=== PATIENT | female | born 1945 | race Caucasian/White ===

== ENCOUNTER → 2016-11-15 | Outpatient (CLI) | payer MEDICARE, OTHER | END | disposition home or self-care (01) | LOC: YCFC.O 16:22 | PROVIDERS: ATTEND Nurse Practitioner Family | DX: R60.0 Localized edema (principal) ==

== ENCOUNTER → 2016-11-16 | Outpatient (CLI) | payer OTHER, MEDICAID ==
--- NOTE | 2016-11-16 16:23 | US ---
EXAM DESCRIPTION: Venous,Lower Extremity RT CLINICAL HISTORY: LOCALIZED EDEMA COMPARISON: None Available. TECHNIQUE: Right lower extremity venous duplex FINDINGS: There is no DVT identified. There is normal color flow observed with good flow augmentation. All deep veins compress normally. IMPRESSION: Negative for right lower extremity DVT. Electronically signed by: Qmaar Wang MD 11/16/2016 4:21 PM NEUROSURGERY SPINE PHYSICIAN
--- NOTE | 2016-11-17 13:47 | US ---
EXAM DESCRIPTION: Venous,Lower Extremity LT CLINICAL HISTORY: 71 years Female, EDEMA COMPARISON: None. TECHNIQUE: Grayscale, color Doppler and spectral Doppler imaging of the left lower extremity venous structures was performed. Static images were saved to the patient's medical record. FINDINGS: Normal compressibility and color Doppler flow within the deep venous structures of the left lower extremity. Incidentally noted is imaging of the facial varicose veins of the anterior proximal calf. These are thrombosed. IMPRESSION: Today's exam demonstrates thrombosed superficial varicose veins of the left calf. No evidence of DVT. Electronically signed by: Qamar Wang MD 11/16/2016 4:21 PM PLASTICS AND COMPOSITES INSPECTOR
--- NOTE | 2016-11-22 00:34 | US ---
EXAM DESCRIPTION: Venous,Lower Extremity RT CLINICAL HISTORY: LOCALIZED EDEMA COMPARISON: None Available. TECHNIQUE: Right lower extremity venous duplex FINDINGS: There is no DVT identified. There is normal color flow observed with good flow augmentation. All deep veins compress normally. IMPRESSION: Negative for right lower extremity DVT. Electronically signed by: Qamar Wang MD 11/16/2016 4:21 PM ELECTRICAL SUPERINTENDENT
== END | disposition home or self-care (01) ==
LOC: US 13:08
PROVIDERS: ATTEND Nurse Practitioner Family
DX: R60.0 Localized edema (principal)

== ENCOUNTER 2017-01-21 14:53 | Emergency (ER) | payer OTHER, MEDICAID ==
[2017-01-21 16:11] VITALS: TEMP 98.5; O2SAT 95
--- NOTE | 2017-01-21 16:52 | ED.PDOC ---
History of Present Illness - General Chief Complaint: Lower Extremity Injury Stated Complaint: left thigh pain Time Seen by Provider: 01/21/17 15:18 Source: patient Exam Limitations: no limitations - History of Present Illness Initial Comments: The patient is a 71-year-old female presenting to the emergency room secondary to left leg pain. She has had some pain in the left calf as well as some pain in the left lateral thigh for the last 2-3 days. Prior to that approximately 3 weeks ago she actually fell through a dog and sustained a significant bruise along the leg and was sore for a period of weeks after that. She developed this new increasing discomfort and was concerned for a deep venous thrombosis. No chest pain or shortness of breath. No palpitations. She has been ambulatory on the leg. There is no gross deformity other than what is obviously a large bruise to the left upper thigh that is healing.the hematoma to the left thigh is uncomfortable to palpation. There is no posterior pain in the left thigh. The patient does have pain in the left calf with dorsiflexion of the foot. There are no obvious palpable cords. She does have varicose veins. There is no obvious bruising here. No deformity. Sensation is preserved. Pulses are good. Occurred: other Pain - Lower Extremity: mild: Left Thigh/Hip, Left Calf Method of Injury: fell Improving Factors: nothing Worsening Factors: nothing Allergies/Adverse Reactions: Allergies NO KNOWN ALLERGY Allergy (Verified 07/23/15 20:47) Review of Systems - Review of Systems Constitutional: States: no symptoms reported EENTM: States: no symptoms reported Respiratory: States: no symptoms reported Cardiology: States: no symptoms reported Gastrointestinal/Abdominal: States: no symptoms reported Genitourinary: States: no symptoms reported Musculoskeletal: States: no symptoms reported, see HPI Skin: States: no symptoms reported Neurological: States: no symptoms reported Endocrine: States: no symptoms reported All other Systems: No Change from Baseline Past Medical History (General) - Patient Medical History Hx of COPD: Yes Hx Cardiac Disorders: Yes Hx Congestive Heart Failure: Yes Hx Hypertension: Yes Hx Diabetes: No Hx Gastroesophageal Reflux: Yes - Vaccination History Hx Tetanus, Diphtheria Vaccination: Yes - Social History Hx Tobacco Use: No - Female History Patient : No - Triage Comment ED Triage Comment: Pt states she has been having left thigh pain for past 3 weeks and pain is getting worse. Having more difficult time weight bearing and having throbbing pain. Family Medical History - Family History Mother Family History: No Known Living Status: Physical Exam - Physical Exam General Appearance: Alert, Comfortable, No apparent distress Eyes, Ears, Nose, Throat: PERRL/EOMI Neck: non-tender, full range of motion, supple Cardiovascular/Respiratory: regular rate, rhythm, normal peripheral pulses, normal breath sounds, no respiratory distress Gastrointestinal/Abdominal: non-tender Back: normal inspection Thigh/Hip: pain, soft tissue tenderness, swelling, other Leg: pain, other - see history of present illness Knee: normal inspection, non-tender, no evidence of injury, normal ROM Ankle: normal inspection, non-tender, no evidence of injury, normal ROM Foot: normal inspection, non-tender, no evidence of injury, normal ROM Neuro/Tendon: normal sensation, normal motor functions, normal tendon functions Mental Status: alert, oriented x 3 Skin: normal color Comments: Vital Signs - 24 hr 01/21/17 16:06 Temperature 98.5 F Pulse Rate [ 65 monitor] Respiratory 18 Rate Blood Pressure 137/82 [Left Arm] O2 Sat by Pulse 95 Oximetry Progress - Progress Progress: 01/21/17 16:52 the patient is a 71-year-old female presenting with left lower extremity pain with concern for a deep venous thrombosis. Ultrasound has been performed and no deep venous thrombosis has been demonstrated. Discomfort is likely due to muscular strain from fall 3 weeks ago. She does need to do stretching and range of motion exercises. ER warnings were given. Follow-up with primary care doctor next week. Departure - Departure Clinical Impression: Strain of calf muscle Qualifiers: Encounter type: initial encounter Laterality: left Qualified Code(s): S86.812A - Strain of other muscle(s) and tendon(s) at lower leg level, left leg, initial encounter Disposition: Discharge to Home or Self Care Condition: Fair Departure Forms: ED Discharge - Pt. Copy, Patient Portal Self Enrollment Instructions: Muscle Strain Diet: bland diet Activity: increase activity as tolerated Referrals: Shelby Faye FNP [Primary Care Provider] - 1-2 Weeks Additional Instructions: the patient is a 71-year-old female presenting with left lower extremity pain with concern for a deep venous thrombosis. Ultrasound has been performed and no deep venous thrombosis has been demonstrated. Discomfort is likely due to muscular strain from fall 3 weeks ago. She does need to do stretching and range of motion exercises. ER warnings were given. Follow-up with primary care doctor next week.
--- NOTE | 2017-01-21 16:53 | US ---
EXAM DESCRIPTION: Venous,Lower Extremity LT CLINICAL HISTORY: lower ext pain COMPARISON: None. TECHNIQUE: 2D grayscale and color venous duplex Doppler evaluation of the lower extremity are obtained from groin to calf. FINDINGS: There is normal flow, augmentation to flow, and compressibility of the deep venous vasculature of the left lower extremity with no ultrasound evidence of deep venous thrombosis. IMPRESSION: No ultrasound evidence of deep venous thrombosis . Electronically signed by: Panfilo Cui MD 01/21/2017 4:53 PM CDT
[2017-01-22 08:54] VITALS: BP 134/80
== END 2017-01-21 17:10 | disposition home or self-care (01) ==
LOC: ER 14:53
DX: S86.812A Strain of other muscle(s) and tendon(s) at lower leg level, left leg, initial encounter (principal); J44.9 Chronic obstructive pulmonary disease, unspecified; I11.0 Hypertensive heart disease with heart failure; I50.9 Heart failure, unspecified; K21.9 Gastro-esophageal reflux disease without esophagitis; W19.XXXA Unspecified fall, initial encounter

== ENCOUNTER → 2017-03-23 | Outpatient (CLI) | payer OTHER, MEDICAID ==
--- NOTE | 2017-03-24 08:17 | CT ---
EXAM DESCRIPTION: Abdoment/Pelvis w/o Contrast CLINICAL HISTORY: ABD PN COMPARISON: July 21, 2015 TECHNIQUE: CT of the abdomen and Pelvis was performed without IV contrast. This exam was performed according to our departmental dose-optimization program, which includes automated exposure control, adjustment of the mA and/or kV according to patient size and/or use of iterative reconstruction technique. FINDINGS: There is a left periumbilical anterior abdominal wall hernia with the hernia sac measuring 6.2 cm transverse diameter and the hernia defect measuring approximately 2.5 cm transverse diameter. The hernia contains omental fat and fluid with inflammation suggestive of fatty ischemia. No herniated bowel loops. Overall, the size of the hernia is not significantly changed from June, but degree of fatty inflammation is new from the prior study. Question previously repaired midline anterior abdominal wall hernia at or near the same location. No pneumoperitoneum, ascites or adenopathy. No abdominal aortic aneurysm. Postoperative changes are noted in the stomach. There are surgical clips anterior to the liver. No calcified gallstone. The liver, spleen, pancreas, adrenals and kidneys are unremarkable for noncontrast technique. Surgical clips are noted in the right mid abdomen. No dilated small bowel loops. The bladder is suboptimally distended. The uterus is surgically absent. The ovaries are not confidently identified and are either atrophied or surgically absent. No adnexal mass. Minimal colonic diverticulosis without diverticulitis. Old T12 compression fracture, no acute bone lesion. IMPRESSION: Left periumbilical anterior abdominal wall hernia containing only fat and fluid as detailed above. The size of the hernia is stable from June, but inflammation involving herniated fat is new from the prior study and suggests ischemia which may present a source of pain in this patient. Surgical consultation should be considered. No herniated bowel loops, obstruction, pneumoperitoneum or other acute intra-abdominal abnormality. Electronically signed by: Jose Azul MD 03/24/2017 8:16 AM CDT Workstation: [id number]
== END | disposition home or self-care (01) ==
LOC: CT 09:03
PROVIDERS: ATTEND Nurse Practitioner Family
DX: K46.9 Unspecified abdominal hernia without obstruction or gangrene (principal)

== ENCOUNTER → 2018-03-22 | Outpatient (CLI) | payer OTHER, MEDICAID ==
--- NOTE | 2018-03-22 17:22 | RAD ---
EXAM DESCRIPTION: Chest,2 Views CLINICAL HISTORY: COPD, ESSENTIAL HYPERTENSION COMPARISON: Previous study February 06, 2016 TECHNIQUE: PA/lateral FINDINGS: There is no acute appearing cardiac or pulmonary abnormality. Calcified granulomas are seen in the left upper and lower lobes. Heart size is normal with normal pulmonary vascularity. No pleural effusion or pneumothorax. Lungs are clear with no consolidating infiltrate. Lateral view shows intact sternum and osteopenic T-spine. No change compared to previous study. IMPRESSION: No acute process is identified in the chest. Electronically signed by: Marco Bush MD 03/22/2018 5:20 PM CDT
== END ==
LOC: YCFC.O 16:13
PROVIDERS: ATTEND Nurse Practitioner Family
DX: J44.9 Chronic obstructive pulmonary disease, unspecified (principal); I10 Essential (primary) hypertension; R73.09 Other abnormal glucose; M62.81 Muscle weakness (generalized); R00.2 Palpitations; R07.89 Other chest pain

== ENCOUNTER → 2018-03-28 | Outpatient (CLI) | payer OTHER, MEDICAID | LOC: YCFC.O 11:25 | DX: R53.83 Other fatigue (principal) ==

== ENCOUNTER → 2018-06-15 | Outpatient (CLI) | payer OTHER, MEDICAID ==
--- NOTE | 2018-06-15 21:01 | MAM ---
EXAM DESCRIPTION: 3D Screening BILATERAL : Digital Mammography. CLINICAL HISTORY: 73 years Female SCREENING . No complaints and no personal history of breast cancer. Sister with breast cancer. Childbirth. Postmenopausal. No HRT. COMPARISON: Baseline study at this facility.. TECHNIQUE: Bilateral CC and MLO projection full-field images, Digital tomosynthesis mammographic technique. Bilateral digital 2-D full-field MLO images. CAD not utilized. FINDINGS: The breast parenchymal density pattern is: Scattered areas of fibroglandular density. No skin thickening or nipple retraction. Bilateral vascular calcifications. Bilateral solitary microcalcifications. Bilateral retroareolar focal asymmetry and minimal architectural distortion. No suspicious microcalcifications bilaterally. IMPRESSION: BI-RADS CATEGORY: 0 - INCOMPLETE- Need additional imaging evaluation. FOLLOW-UP: Recall for additional imaging: Bilateral targeted breast ultrasound of the regions of interest.. Written communication concerning the IMPRESSION and Follow-up, will be mailed to the patient and referring health care provider. Electronically signed by: Yobany Dickinson MD 06/15/2018 8:59 PM CDT
== END ==
LOC: MAMMO 13:00
PROVIDERS: ATTEND Nurse Practitioner Family
DX: Z12.31 Encounter for screening mammogram for malignant neoplasm of breast (principal)

== ENCOUNTER → 2018-08-11 | Outpatient (CLI) | payer OTHER, MEDICAID ==
--- NOTE | 2018-08-11 11:49 | US ---
EXAM DESCRIPTION: Breast,Bilateral: Ultrasound CLINICAL HISTORY: 73 yearsFemaleABNORMAL MAMMO. Focal asymmetries in the bilateral retroareolar breasts. COMPARISON: Digital screening tomosynthesis bilateral breast June 15, 2018. TECHNIQUE: Transcutaneous scanning of the bilateral retroareolar breast utilizing faulkner-scale and Doppler modes. Scanning performed by the trench trimmer fine ; observation by Dr. Dickinson. FINDINGS: Typical retroareolar tissues with echotexture of fatty and fibroglandular tissues and acoustic shadowing from the nipple. No distinct solid dominant mass or cyst. No abnormal vascularity or overlying skin changes. No large calcifications or parenchymal edema. IMPRESSION: Benign exam. BIRAD CATEGORY: 2 BENIGN FINDINGS. RECOMMENDATIONS: FOLLOW UP: Routine digital bilateral mammographic screening, one year interval from May 2018. The FINDINGS and the FOLLOW-UP plan were reviewed in person with the patient after the examination. Written communication explaining the IMPRESSION and FOLLOW-UP will be mailed to the patient and referring care provider. According to the [employer], yearly mammograms are recommended starting at age 40 and continuing as long as a woman is in good health. Any breast change noted on a breast self-exam should be reported promptly to the patient's healthcare provider. Breast MRI is recommended for women with an approximately 20-25% or greater lifetime risk of breast cancer, including women with a strong family history of breast or ovarian cancer and women who have been treated for Hodgkin's disease. A negative mammographic report should not delay tissue diagnosis in patients with significant clinical history or physical findings. Extremely dense breast tissue limits the sensitivity of digital mammography. Electronically signed by: Yobany Dickinson MD 08/11/2018 11:47 AM [facility]
== END ==
LOC: MAMMO 09:19
PROVIDERS: ATTEND Nurse Practitioner Family
DX: R92.8 Other abnormal and inconclusive findings on diagnostic imaging of breast (principal)

== ENCOUNTER 2019-01-29 05:29 | Day surgery (SDC) | payer OTHER, MEDICAID ==
[2019-01-29] MEDS ORDERED: TROP 1%/CYCLOPEN 1%/PHENYL 2% DROPS ONE (06:06)
[2019-01-29] MEDS ORDERED: PROPARACAINE 0.5% OPHTH SOL 15 ML BTTL ONE (06:06)
[2019-01-29] MEDS ORDERED: MOXIFLOXACIN HCL (OPHTH) 1 DROP DROPS ONE (06:06)
[2019-01-29] MEDS ORDERED: MIDAZOLAM INJ 2 MG/2 ML VIAL ONE (07:52)
[2019-01-29] MEDS ORDERED: PROPARACAINE 0.5% OPHTH SOL 15 ML BTTL RIGHT_EYE ONE (08:38)
[2019-01-29] MEDS ORDERED: LIDOCAINE 1% 2 ML VIAL INJ ONE (08:45)
[2019-01-29] MEDS ORDERED: MOXIFLOXACIN HCL (OPHTH) 1 DROP DROPS RIGHT_EYE ONE ×2 (08:46→08:56)
[2019-01-29] MEDS ORDERED: BRIMONIDINE 0.2% OPHTH DROPS RIGHT_EYE ONE ×2 (08:48→08:56)
[2019-01-29] MEDS ORDERED: TOBRAMYCIN SULF 0.3 % OPHT SOL 1 DROP RIGHT_EYE ONE ×2 (08:48→08:56)
[2019-01-29] MEDS ORDERED: DEXAMETHASONE 0.1% OPHTH SOL 1 DROP RIGHT_EYE ONE ×2 (08:48→08:56)
== END 2019-01-29 09:50 | disposition home or self-care (01) ==
LOC: AMB 05:29
PROVIDERS: ATTEND Ophthalmology
DX: H25.811 Combined forms of age-related cataract, right eye (principal)
CPT/HCPCS: 00142; 66984; J2250

== ENCOUNTER → 2019-03-28 | Outpatient (CLI) | payer OTHER, MEDICAID | LOC: GMAM 17:31 | PROVIDERS: ATTEND Family Medicine | DX: R10.33 Periumbilical pain (principal) ==

== ENCOUNTER → 2019-06-04 | Outpatient (CLI) | payer OTHER, MEDICAID ==
--- NOTE | 2019-06-04 18:05 | RAD ---
PROVIDED CLINICAL HISTORY/REASON FOR EXAM: RT HIP PAIN Findings: Number of images: 3 Location: Right hip/pelvis No acute fracture or dislocation. Moderate right hip osteoarthritis. Mild degenerative changes noted in both sacroiliac joints. Moderate left hip osteoarthritis. Surgical clips overlie the lower abdomen. Pelvic phleboliths. Degenerative changes about the pubic symphysis. Osteopenia. IMPRESSION: Degenerative changes about the right hip/pelvis. No acute fracture or dislocation. Electronically signed by: Benson Hermosillo MD 06/04/2019 6:04 PM CDT
== END ==
LOC: RAD 12:57
PROVIDERS: ATTEND Nurse Practitioner Family
DX: M16.11 Unilateral primary osteoarthritis, right hip (principal); M47.898 Other spondylosis, sacral and sacrococcygeal region

== ENCOUNTER → 2020-07-03 | Outpatient (CLI) | payer OTHER, MEDICAID ==
--- NOTE | 2020-07-03 19:05 | RAD ---
EXAM DESCRIPTION: Foot,Left 3 Views CLINICAL HISTORY: 75 years Female, FOOT PAIN COMPARISON: May 13, 2020 Findings: 3 view(s)/radiograph(s) Osteopenia. Lisfranc alignment is maintained. Similar deformity of the second digit proximal phalanx. No new fracture is identified. Lisfranc alignment is maintained.. Stable degenerative changes. Healing left fifth metatarsal neck fracture with adjacent soft tissue swelling. IMPRESSION: Interval healing of the previously identified left fifth metatarsal neck fracture with adjacent soft tissue swelling. Electronically signed by: Benson Hermosillo MD 07/03/2020 7:03 PM CDT
== END ==
LOC: RAD 09:03
PROVIDERS: ATTEND Orthopaedic Surgery
DX: S92.355A Nondisplaced fracture of fifth metatarsal bone, left foot, initial encounter for closed fracture (principal)

== ENCOUNTER → 2020-09-30 | Outpatient (CLI) | payer OTHER, MEDICAID ==
--- NOTE | 2020-10-01 08:29 | RAD ---
EXAM DESCRIPTION: Chest,2 Views CLINICAL HISTORY: PRE-OP COMPARISON: Previous study March 22, 2018 TECHNIQUE: PA/lateral FINDINGS: Calcified granuloma in the left upper lobe. Heart size is prominent with normal pulmonary vascularity. No pleural effusion or pneumothorax. Lungs are clear with no consolidating infiltrate. Lateral view shows intact sternum and osteopenic T-spine with lower thoracic compression accentuating kyphosis. Compression is chronic as seen on previous study. Calcified granulomas overlie the upper and lower T-spine. IMPRESSION: No acute process is identified in the chest. Electronically signed by: Marco Bush MD 10/01/2020 8:27 AM [facility]
== END ==
LOC: LAB.O 13:36
PROVIDERS: ATTEND Orthopaedic Surgery
DX: Z01.818 Encounter for other preprocedural examination (principal)

== ENCOUNTER → 2020-10-07 | Day surgery (SDC) | payer OTHER, MEDICAID | LOC: AMB 05:36 | PROVIDERS: ATTEND Orthopaedic Surgery | DX: M20.5X2 Other deformities of toe(s) (acquired), left foot (principal); Z53.9 Procedure and treatment not carried out, unspecified reason ==